=== PATIENT | male | born 1955 | race Hispanic/Latino ===

== ENCOUNTER → 2023-11-12 | Outpatient (CLI) | payer OTHER ==
[~2023-11-12] MED LIST: AMLO-258 PO; ATOR40TA69 PO; CHOL100040 PO; CLOP75TA32 PO; CYCL-309 PO; DOCU-116 PO; EZET10TA48 PO; GABA300C PO; HYDR-4060 PO; INSU100V12 SQ; IOHEXOL 350 MG/ML 100ML INFUS..BTL IV ONE; LOSA100T59 PO; METF-444 PO; METF-446 PO; METO100T14 PO; METOPROLOL TARTRATE 1 MG/ML 5ML VIAL IV ONE; POTA-364 PO; SEMA0.258 SQ; VITAMIN B12 PO
== END | disposition home or self-care (01) ==
LOC: RAH 11:18
PROVIDERS: ATTEND Internal Medicine Cardiovascular Disease
DX: I25.10 Atherosclerotic heart disease of native coronary artery without angina pectoris (principal); M47.815 Spondylosis without myelopathy or radiculopathy, thoracolumbar region
CPT/HCPCS: 75574; J3490; Q9967